=== PATIENT | female | born 1970 | race Caucasian/White ===

== ENCOUNTER → 2019-05-30 | Outpatient (CLI) | payer OTHER ==
[~2019-05-30] MED LIST: CIPRO500 M1 PO; CYCLOBENZAPRINE5 MG PO; OMEPRAZOLE 20 M20 M1 PO; PRILOSEC20 MG; SPRINTEC1 EACH PO; TYLENOL325 MG PO
== END ==
LOC: M.ULTRA 16:00
DX: R19.04 Left lower quadrant abdominal swelling, mass and lump (principal); R50.9 Fever, unspecified

== ENCOUNTER 2019-05-31 14:17 | Emergency (ER) | payer OTHER ==
[~2019-05-31] VITALS: Ht 162.6 cm; Wt 95.7 kg
[~2019-05-31 14:17] MED LIST changes: -CIPRO500 M1 PO; -OMEPRAZOLE 20 M20 M1 PO
[2019-05-31] MEDS ORDERED: CIPRO500 M1 PO (14:30)
[2019-05-31] MEDS ORDERED: OMEPRAZOLE 20 M20 M1 PO (14:30)
[2019-05-31 14:48] LABS: URINE BLOOD 3+ (Negative); URINE CLARITY CLEAR; URINE COLOR YELLOW; URINE GLUCOSE-RANDOM NEGATIVE (Negative); URINE KETONES 2+ (Negative); URINE LEUKOCYTES-REFLEX NEGATIVE (Negative); URINE NITRITE-REFLEX NEGATIVE (Negative); URINE PROTEIN 1+ (Negative); URINE SPECIFIC GRAVITY >= 1.030 (1.005-1.030)
[2019-05-31 14:50] LABS: ICTOTEST (BILI CONFIRMATORY) Negative (Negative); URINE BILIRUBIN 2+ (Negative)
[2019-05-31 14:54] LABS: SQUAMOUS >10 Many /LPF (0-3)
[2019-05-31 14:55] LABS: URINE WBC-REFLEX 0-5 Rare /HPF (0-5)
[2019-05-31 14:56] LABS: BACTERIA-REFLEX >30 Many /HPF (None Seen); CASTS None Seen /LPF (None Seen); CRYSTALS None Seen /LPF (None Seen); MUCUS >6 Heavy strn/LPF (None Seen); URINE RBC 0-2 Rare /HPF (0-2)
[2019-05-31 15:19] LABS: ABSOLUTE BASOPHILS 0.1 thou/uL (0.0-0.2); ABSOLUTE LYMPHOCYTES 2.1 thou/uL (0.8-5.3); BASOPHILS 0.3 %; EOSINOPHILS 0.3 %; HEMOGLOBIN 13.8 gm/dL (12.0-15.0); LYMPHOCYTES 13.2 %; MCH 28.3 pg (26.0-34.0); MCHC 32.8 g/dL (28.0-37.0); MCV 86.2 fL (80.0-100.0); MONOCYTES 12.5 %; MPV 8.4 fl. (7.2-11.1); NUCLEATED RBCS 0 /100WBC; PLATELET COUNT* 477 thou/uL (150-400); POLYS 73.7 %; RBC 4.87 mil/uL (4.20-5.00); RDW-CV 14.4 % (10.5-14.5); WBC 16.3 thou/uL (4.0-11.0)
[2019-05-31 15:31] LABS: CALCIUM 10.8 mg/dL (8.5-10.1); CREATININE 0.7 mg/dL (0.6-1.3); POTASSIUM 3.7 mmol/L (3.5-5.1); TOTAL BILIRUBIN 0.4 mg/dL (<0.1-1.0); TOTAL PROTEIN 7.1 g/dL (6.4-8.2)
[2019-05-31 15:34] LABS: INFLUENZA A ANTIGEN Negative (Negative); INFLUENZA B ANTIGEN Negative (Negative)
[2019-05-31 17:37] LABS: APTT 34.8 Seconds (25.0-31.3); INR 1.3; PROTIME 13.5 Seconds (9.20-11.50)
[2019-05-31 18:40] VITALS: BP 107/74
== END 2019-05-31 18:40 | disposition short-term general hospital (02) ==
LOC: M.ERS 14:17
PROVIDERS: Nurse Practitioner Family
DX: A41.9 Sepsis, unspecified organism (principal); J18.9 Pneumonia, unspecified organism; L02.211 Cutaneous abscess of abdominal wall; Z98.84 Bariatric surgery status; Z88.5 Allergy status to narcotic agent; Z88.8 Allergy status to other drugs, medicaments and biological substances